=== PATIENT | female | born 1950 ===

== ENCOUNTER 2022-08-11 05:45 | Inpatient (IN) | payer OTHER ==
[~2022-08-11] VITALS: Ht 165.1 cm; Wt 72.6 kg
[~2022-08-11 05:45] MED LIST: SYNTHROID100 MCG PO; ZIAC 2.5-6.251 EACH PO; ZOLOFT50 MG PO
[2022-08-12] MEDS ORDERED: ATORVASTATIN CA40 MG (13:44)
[2022-08-12] MEDS ORDERED: MONTELUKAST SOD10 MG (13:44)
[2022-08-12] MEDS ORDERED: CETIRIZINE HCL10 MG (13:44)
[2022-08-14] MEDS ORDERED: NEURONTIN300 MG PO (13:56)
[2022-08-14] MEDS ORDERED: ACETAMINOPHEN500 M2 PO (13:56)
== END 2022-08-14 22:24 | disposition home or self-care (01) | DRG 331 ==
LOC: CIR.AMB 05:45 → SURH 10:40
PROVIDERS: ADMIT Surgery; ATTEND Surgery
PROC: 07BB4ZZ Excision of Mesenteric Lymphatic, Percutaneous Endoscopic Approach (ICD-10-PCS; 2022-08-11)
PROC: 0DBU4ZZ Excision of Omentum, Percutaneous Endoscopic Approach (ICD-10-PCS; 2022-08-11)
PROC: 0DTF4ZZ Resection of Right Large Intestine, Percutaneous Endoscopic Approach (ICD-10-PCS; principal; 2022-08-11 07:00)
DX: C18.0 Malignant neoplasm of cecum (principal); Z20.822 Contact with and (suspected) exposure to COVID-19